=== PATIENT | female | born 1970 | race Caucasian/White ===

== ENCOUNTER 2022-03-21 21:42 | Inpatient (IN) | payer MEDICARE, SELFPAY ==
--- NOTE | 2022-03-22 | ECG_ITS ---
Test Reason : cp Blood Pressure : / mmHG Vent. Rate : 072 BPM Atrial Rate : 072 BPM P-R Int : 128 ms QRS Dur : 080 ms QT Int : 396 ms P-R-T Axes : 032 029 064 degrees QTc Int : 433 ms Normal sinus rhythm Normal ECG No previous ECGs available Referred By: Khloe Bertrand Electronically Signed By:TERRANCE LAN MD
[2022-03-22 00:04] VITALS: BMI 40.8
--- NOTE | 2022-03-22 00:21 | PC.ADMIT ---
Pt is a 51yoF admitted from [facility] for psychosis and delusions. Pt was brought to ED by EMS after going door to door with erratic behavior, yelling that she was . She was found with blood running down her legs and a turkey baster filled with blood nearby; appeared to be menstruating but denied inserting any objects inside her body. Pt stated she was , either in labor or miscarrying; this was verified through blood tests to be false. Pt's mood is labile, thought process delusional and tangential. Upon arrival to she refused all admission paperwork, assessment, vitals, and questions, stating I just want to go to bed . Pt appears disheveled/unkempt, has poor dentition. While on the stretcher w/EMS, pt was holding a glass marijuana pipe in her hand which she handed to RN stating this is bad weed, I wanted to show someone that. You can throw it out . Pt has a hx of Bipolar w/psychotic features and PTSD and has been off her medication for an unknown amount of time. She has lived in [facility] residential housing for 5 years. It is unclear if she has been seeing a therapist or medication prescriber, and the details of her home supports are also unclear. Pt has poor insight into why she is here, and refused to comment on SI/HI/AH/VH. Pt refused flu vaccine.
[2022-03-22 08:15] VITALS: BP 191/97; PULSE 75; RESP 20; TEMP 36.7; O2SAT 99
[2022-03-22] MEDS: valACYclovir HCL 500 MG TABLET PO ×2 (08:35→22:04)
[2022-03-22] MEDS: Loratadine 10 MG TABLET PO (08:35)
[2022-03-22] MEDS: lisinopriL 5 MG TABLET PO (08:35)
[2022-03-22] MEDS: Docusate Sodium 100 MG CAPSULE PO (08:35)
[2022-03-22 09:14] LABS: Estimated Average Glucose 111 mg/dL; Hemoglobin A1c % 5.5 %
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
[2022-03-22 10:29] LABS: Cholesterol 139 mg/dL; HDL Cholesterol 29 mg/dL; LDL Cholesterol Calculated 85 mg/dl; Triglycerides 128 mg/dL
[2022-03-22 10:41] LABS: Reflex LDLD? No
--- NOTE | 2022-03-22 12:20 | PC.NURSE ---
Patient BP high 191/97 HR 77 left arm, 180/99 right arm. Denies symptoms, no CP or pressure, no headache, no c/o feeling lightheaded, no blurry or double vision. Educated regarding medication for blood pressure, patient refused Cardura. Blood pressure retaken 186/100 HR 77. Adamantly does not want medication. States it is high because I was exercising , walking up and down in the suazo, maybe you should have waited 10 minutes, and taken it while I was laying down . Where do I know you from, when I see you I cough so I know I know you from somewhere . Khloe Bertrand made aware of elevated blood pressure. Approached patient again, she requested a retake bedcause it is lower now . BP 173/90 HR 80. Agrees to one time dose of Amlodipine. Re educated on medication and high BP.
[2022-03-22] MEDS: amLODIPine Besylate 5 MG TABLET PO (13:23)
[2022-03-22] MEDS: Gabapentin 300 MG CAPSULE PO (13:23)
[2022-03-22 14:15] VITALS: BP 173/90; PULSE 80
[2022-03-22 14:23] VITALS: BP 198/113; PULSE 88
[2022-03-22 14:25] VITALS: BP 184/111; PULSE 85
[2022-03-22 22:01] VITALS: BP 140/81; PULSE 82; TEMP 36.6; O2SAT 99
[2022-03-22] MEDS: Acetaminophen 325 MG TABLET 650 MG PO (22:04)
[2022-03-22] MEDS: Cyclobenzaprine HCl 5 MG TABLET PO (22:04)
[2022-03-22] MEDS: Fluticasone Propionate 250 MCG BLST.W.DEV 1 PUFF INHALE (22:14)
[2022-03-23] MEDS: Acetaminophen 325 MG TABLET 650 MG PO ×2 (04:55→14:38)
[2022-03-23 06:00] VITALS: BP 161/101; PULSE 75; RESP 16; TEMP 36.4; O2SAT 99
[2022-03-23] MEDS: Cyclobenzaprine HCl 5 MG TABLET PO (06:28)
[2022-03-23 07:00] VITALS: BMI 37.9
[2022-03-23] MEDS: Fluticasone Propionate 250 MCG BLST.W.DEV 1 PUFF INHALE (08:32)
[2022-03-23] MEDS: Doxazosin Mesylate 2 MG TABLET PO (08:34)
[2022-03-23] MEDS: lisinopriL 5 MG TABLET PO (08:34)
[2022-03-23] MEDS: valACYclovir HCL 500 MG TABLET PO (08:35)
[2022-03-23] MEDS: Loratadine 10 MG TABLET PO (08:36)
--- NOTE | 2022-03-23 14:30 | P.PNPSI_ITS ---
Subjective Subjective Date of Service: 03/23/22 Reason For Visit: Bipolar 1 Disorder, PTSD Subjective Notes: Conditional Voluntary Interim History: Pt reports feeling fine. She reports doing art on the unit helps her with anxiety. Pt denies SI/HI. She continues to report hearing voices of spirits. Denies CAH. Pt continues to report that she had a miscarriage and that she is still and therefore can't take psychotropic medications. Pt declined taking Olanzapine, stating that she does not need any psych medications. She has agreed to take medications for HTN. Pt reports she is worried that she is being evicted from and has hearing tomorrow. Collateral information from friend Omega- reports pt stayed with him last week, delusions about being , labile, hyperverbal, not letting him sleep, difficult to redirect. Omega states he got a no trespassing order. Medication Compliance: Yes Side effects from medications: No Review of Systems Review of Systems Yes all other systems are reviewed and are negative Constitutional: Reports no additional constitutional complaints Eyes: Reports no additional eye complaints Cardiovascular: Denies chest pain, Denies chest pain at rest, Denies syncope, Denies lightheadedness and Denies dyspnea Respiratory: Denies dyspnea Gastrointestinal: Denies abdominal pain, Denies constipation, Reports GI cramping, Denies dyspepsia, Reports diarrhea and Denies vomiting Musculoskeletal: Reports no additional musculoskeletal complaints Denies syncope Mental Status Exam Mental Status Exam Narrative: Appearance:MO, disheveled, in NAD Behavior:somewhat guarded at times but also overly familiar Psychomotor: some agitation Speech: mostly clear, hyperverbal, pressured at times, spontaneous TP: tangential TC: feeling anxious, no SI/HI, wanting to be discharge soon Mood: good Affect: expansive, labile SI: denies HI: denies AH/VH: denies Delusions:some suspiciousness about peers at , currently does not think she is but thinks she may have had miscarriage yesterday despite no medical evidence of this. Insight/judgment: poor x 3. Memory/cog: alert, oriented x 3. Diagnostics Vital Signs (24Hr): Vital Signs - 24 hr 03/22/22 22:01 03/23/22 06:00 Temperature 97.8 F 97.6 F Pulse Rate 82 75 Respiratory Rate 16 Blood Pressure 140/81 H 161/101 H Pulse Oximetry 99 99 Oxygen Delivery Method Room Air Room Air BMI result Body Mass Index 37.9 Labs Labs: Laboratory Results - last 48 hr 03/22/22 03/22/22 08:42 08:42 Estimat Average Glucose 111 Hemoglobin A1c % 5.5 Triglycerides 128 Cholesterol 139 LDL Cholesterol, Calc 85 HDL Cholesterol 29 Medications Medications Current Medications Acetaminophen (Acetaminophen 325 Mg Tablet) 650 mg PO Q6H PRN PRN Reason: Headache/Pain Mild Scale (1-3) Last Admin: 03/23/22 04:55 Dose: 650 mg Al Hydroxide/Mg Hydroxide (Magnesium Hydrox/Alum Hydrox 30 Ml Oral.Susp) 30 ml PO Q6H PRN PRN Reason: Heartburn/Nausea Clonidine HCl (Clonidine Hcl 0.1 Mg Tablet) 0.1 mg PO Q2H PRN; Protocol PRN Reason: SBP>160, DBP>100 Cyclobenzaprine HCl (Cyclobenzaprine Hcl 5 Mg Tablet) 5 mg PO TID PRN PRN Reason: Back Pain Last Admin: 03/23/22 06:28 Dose: 5 mg Diphenhydramine HCl (Diphenhydramine Hcl 25 Mg Capsule) 25 mg PO TID PRN PRN Reason: Allergic Reaction Docusate Sodium (Docusate Sodium 100 Mg Capsule) 100 mg PO BID [facility] Last Admin: 03/23/22 08:37 Dose: Not Given Doxazosin Mesylate (Doxazosin Mesylate 2 Mg Tablet) 2 mg PO DAILY [facility]; Protocol Last Admin: 03/23/22 08:34 Dose: 2 mg Fluticasone Propionate (Fluticasone Propionate 250 Mcg Blst.W.Dev) 1 puff INHALE RBID [facility] Last Admin: 03/23/22 08:32 Dose: 1 puff Gabapentin (Gabapentin 300 Mg Capsule) 300 mg PO TID [facility] Last Admin: 03/23/22 08:36 Dose: Not Given Hydroxyzine HCl (Hydroxyzine Hcl 25 Mg Tablet) 25 mg PO Q6H PRN PRN Reason: Anxiety Lisinopril (Lisinopril 10 Mg Tablet) 10 mg PO DAILY [facility]; Protocol Loratadine (Loratadine 10 Mg Tablet) 10 mg PO DAILY [facility] Last Admin: 03/23/22 08:36 Dose: 10 mg Magnesium Hydroxide (Milk Of Magnesia 30 Ml Oral.Susp) 30 ml PO DAILY PRN PRN Reason: Constipation Nicotine Polacrilex (Nicotine Polacrilex 2 Mg Gum) 4 mg BUCCAL Q2H PRN PRN Reason: Nicotine Cravings Olanzapine (Olanzapine 5 Mg Tablet) 5 mg PO TID PRN PRN Reason: agitation Olanzapine (Olanzapine 7.5 Mg Tablet) 15 mg PO BEDTIME [facility] Last Admin: 03/22/22 22:17 Dose: Not Given Trazodone HCl (Trazodone Hcl 50 Mg Tablet) 50 mg PO BEDTIME PRN PRN Reason: Insomnia Valacyclovir HCl (Valacyclovir Hcl 500 Mg Tablet) 500 mg PO BID [facility] Last Admin: 03/23/22 08:35 Dose: 500 mg Allergies Allergies Allergy/AdvReac Type Severity Reaction Status Date / Time codeine Allergy Unknown Verified 03/21/22 22:55 latex Allergy Rash Verified 03/21/22 22:55 Assessment & Plan Assessment & Plan (1) Schizoaffective disorder, bipolar type: Status: Acute Code(s): F25.0 - Schizoaffective disorder, bipolar type Plan Ms. Bedoya is a 51 year-old woman with hx of schizoaffective disorder versus bipolar. Pt was brought on sect 12 to [facility] after found going from door to door, with turkey baster apparently filled with blood telling people she was and in active labor. In the ED, utox negative. Hcg is less than 1 mlU/ml, not indicative of nor evidence of miscarriage. CBC wnl, CMP mostly wnl. PLAN 1. Admit to M3, CV, 15 minutes checks for safety 2. Obtain collateral information 3. Offer olanzapine can refused as it is not court mandated. 4. Aftercare planning. 03/23- continue current medications- monitor BP. I spent minutes with the patient and/or on the patient floor today, greater than?50% of which was spent counseling/coordinating care. Reason for contiued inpatient stay Substantial Risk for: inability to function
--- NOTE | 2022-03-23 17:17 | P.CNHOSGPS_ITS ---
History of Present Illness Data of Consult Service Date: 03/23/22 Requesting physician: Ginette Alvarez Primary Care Provider: Unknown Physician HPI Reason for consult: new admission, possible UTI This is a 51 year old female with a history of bipolar disorder versus schizoaffective disorder who was brought in on [address] after she was going door to door telling people she was in actively giving . hospitalists were asked to see her in consultation for routine medical consult as she was transferred from [facility]. She is unable to provide clear medical/medication history. When asked about hypertension she said she was mid diagnosed in the past and she gets cold because she's homeless. She does state that she was told that she has bad white cells in her body and she needs to be on antibiotics. She was recently treated with antibiotics possibly for UTI. She denies dysuria, but reports urinary incontinence which she states is not her baseline. She denies abdominal pain. She does report diarrhea but this seems to be dependent on food in secondary to history of cholecystectomy. social history - she reports remote tobacco use; social/occasional etoh use; reports using marijuana edibles from dispensary, but denies other drug use Review of Systems Review of Systems: Yes all other systems are reviewed and are negative Cardiovascular: Cardiovascular: Denies chest pain Gastrointestinal: Gastrointestinal: Denies abdominal pain, Reports diarrhea and Denies vomiting Genitourinary: Genitourinary: Denies dysuria and Reports urinary incontinence [facility] Medical History (Updated 03/23/22 @ 17:28 by YULI Leon) Arthritis Asthma Bipolar disorder Genital HSV Hypertension Kidney stone Menorrhagia Microalbuminuria Obesity PTSD (post-traumatic stress disorder) Sciatica Seizure disorder Family History Other Heart disease Surgical History S/P cholecystectomy Social History Household Members: Other Household Members Other:: Roommates Housing: Other Housing Other:: Residential housing Do you presently have visiting nurse or other home services: Yes Patient Tobacco Use Status: Current everyday Tobacco user Tobacco use type: Cigarette Smoked in Last 30 Days: Yes e-Cigarette/Vaping Use: Never Used Patient Interested in Nicotine Replacement: Yes Patient Given Instructions on How to Stop Smoking: No Second Hand Smoke Exposure: Yes Use of substances other than those prescribed or required for medical reasons: No Substance Use Type: Crack/Cocaine, Heroin and Marijuana Last Used Substance Other:: remote hx substance use. Pt denies recent use Currently Displaying Signs/Symptoms of Drug Intoxication Withdrawal: No Any prior treatment program specific to substance use: Yes Have you been hit, kicked, punched, or otherwise hurt by someone within the past year? If so, by whom?: No Do you feel safe in your current relationship?: No Current Relationship Is there a partner from a previous relationship who is making you feel unsafe now?: No Are you made to feel afraid or neglected: No Advance Directives: No Advance Directives Information Provided: No Do you have thoughts of harming others: None Do you have a plan to hurt others: No Plan Recently lost weight without trying: No How much weight loss: Not applicable Eating poorly because of decreased appetite: No Nutrition screen score: 0 Nutrition Risks: No Nutritional Risk Patient : No : No Poor oral hygiene: Yes service: No Sexual orientation: Don't Know Meds Allergies Allergy/AdvReac Type Severity Reaction Status Date / Time codeine Allergy Unknown Verified 03/21/22 22:55 latex Allergy Rash Verified 03/21/22 22:55 Active Medications: Current Medications Acetaminophen (Acetaminophen 325 Mg Tablet) 650 mg PO Q6H PRN PRN Reason: Headache/Pain Mild Scale (1-3) Last Admin: 03/23/22 14:38 Dose: 650 mg Al Hydroxide/Mg Hydroxide (Magnesium Hydrox/Alum Hydrox 30 Ml Oral.Susp) 30 ml PO Q6H PRN PRN Reason: Heartburn/Nausea Amlodipine Besylate (Amlodipine Besylate 5 Mg Tablet) 5 mg PO BEDTIME [facility]AS[facility]; Protocol Clonidine HCl (Clonidine Hcl 0.1 Mg Tablet) 0.1 mg PO Q2H PRN; Protocol PRN Reason: SBP>160, DBP>100 Cyclobenzaprine HCl (Cyclobenzaprine Hcl 5 Mg Tablet) 5 mg PO TID PRN PRN Reason: Back Pain Last Admin: 03/23/22 06:28 Dose: 5 mg Diphenhydramine HCl (Diphenhydramine Hcl 25 Mg Capsule) 25 mg PO TID PRN PRN Reason: Allergic Reaction Docusate Sodium (Docusate Sodium 100 Mg Capsule) 100 mg PO BID [facility] Last Admin: 03/23/22 08:37 Dose: Not Given Doxazosin Mesylate (Doxazosin Mesylate 2 Mg Tablet) 2 mg PO DAILY [facility]; Protocol Last Admin: 03/23/22 08:34 Dose: 2 mg Fluticasone Propionate (Fluticasone Propionate 250 Mcg Blst.W.Dev) 1 puff INHALE RBID [facility] Last Admin: 03/23/22 08:32 Dose: 1 puff Gabapentin (Gabapentin 300 Mg Capsule) 300 mg PO TID [facility] Last Admin: 03/23/22 16:03 Dose: Not Given Hydroxyzine HCl (Hydroxyzine Hcl 25 Mg Tablet) 25 mg PO Q6H PRN PRN Reason: Anxiety Lisinopril (Lisinopril 10 Mg Tablet) 10 mg PO DAILY [facility]; Protocol Loratadine (Loratadine 10 Mg Tablet) 10 mg PO DAILY [facility] Last Admin: 03/23/22 08:36 Dose: 10 mg Magnesium Hydroxide (Milk Of Magnesia 30 Ml Oral.Susp) 30 ml PO DAILY PRN PRN Reason: Constipation Nicotine Polacrilex (Nicotine Polacrilex 2 Mg Gum) 4 mg BUCCAL Q2H PRN PRN Reason: Nicotine Cravings Olanzapine (Olanzapine 5 Mg Tablet) 5 mg PO TID PRN PRN Reason: agitation Olanzapine (Olanzapine 7.5 Mg Tablet) 15 mg PO BEDTIME [facility] Last Admin: 03/22/22 22:17 Dose: Not Given Trazodone HCl (Trazodone Hcl 50 Mg Tablet) 50 mg PO BEDTIME PRN PRN Reason: Insomnia Valacyclovir HCl (Valacyclovir Hcl 500 Mg Tablet) 500 mg PO BID [facility] Last Admin: 03/23/22 08:35 Dose: 500 mg Home Medications Medication Instructions Recorded Confirmed Last Taken Type cyclobenzaprine 5 mg tablet 5 mg PO TID PRN Back Pain 03/21/22 03/21/22 Unknown History diphenhydramine HCl 25 mg tablet 25 mg PO TID PRN Allergic Reaction 03/21/22 03/21/22 Unknown History (Banophen) docusate sodium 100 mg capsule 100 mg PO BID 03/21/22 03/21/22 Unknown History doxazosin 2 mg tablet 2 mg PO DAILY 03/21/22 03/21/22 Unknown History fluticasone propionate 220 2 puff inhalation BID 03/21/22 03/21/22 Unknown History mcg/actuation HFA aerosol inhaler (Flovent HFA) gabapentin 300 mg capsule 300 mg PO QID 03/21/22 03/21/22 Unknown History lisinopril 5 mg tablet 5 mg PO DAILY 03/21/22 03/21/22 Unknown History loratadine 10 mg tablet 10 mg PO DAILY 03/21/22 03/21/22 Unknown History olanzapine 5 mg tablet 5 mg PO BEDTIME 03/21/22 03/21/22 Unknown History valacyclovir 500 mg tablet 500 mg PO BID 03/21/22 03/21/22 Unknown History (Valtrex) Assessment and Plan (1) Hypertension: Status: Acute Plan This is a 51 year old female with history of schizoaffective disorder versus bipolar disorder admitted to Adult inpatient psych floor uncontrolled HTN lisinopril and norvasc have been added blood pressure should improve with these additions urinary incontinence she states that this is not her baseline although it is listed in her medical history patient states she was told that she has bad white blood cells in her body she feels she may have UTI will obtain UA intermittent diarrhea seems to be food related recommend to avoid fried/fatty foods given history of cholecystectomy Obesity BMI 37.9 No other acute medical issues at this time. Thank you for allowing us to participate in the care of this patient. Physical Exam Vital Signs: Last Vital Signs Temp 97.6 F 03/23/22 06:00 Pulse 75 03/23/22 06:00 Resp 16 03/23/22 06:00 BP 161/101 H 03/23/22 06:00 Pulse Ox 99 03/23/22 06:00 O2 Del Method 03/23/22 06:00 BMI result Body Mass Index 37.9 Const General: comfortable, no acute distress, alert, awake and Physically active Nutritional Appearance: obese Resp Effort & Inspection: normal respiratory effort and able to speak in complete sentences Auscultation: clear to auscultation bilaterally Cardio Rate: regular rate Heart sounds: S1 normal heart sound present and S2 normal heart sound present GI Inspection: Yes obesity Neuro Other: no focal deficits appreciated Cranial nerves: Yes CN's II-XII intact bilaterally Extrem General: Yes no pedal edema
[2022-03-23 18:52] LABS: Appearance Urine Clear; Color Urine Yellow; Glucose Urine UA Negative (Negative); Leukocyte Esterase Urine Small (1+) (Negative); Nitrite Urine Negative (Negative); PH 6.5 (5.0-9.0); Specific Gravity - Urine 1.015 (1.005-1.025); UMIC TRIGGER UACC YES; Urine Blood Small (1+) (Negative); Urine Ketones Negative (Negative); Urine Protein Negative (Neg-Trace)
[2022-03-23 19:06] LABS: Bacteria Urine None Seen (None Seen); Hyaline Casts Urine 0-2 /LPF (0-2); UACC Culture Trigger YES
[2022-03-24] MEDS: Acetaminophen 325 MG TABLET 650 MG PO ×3 (02:34→15:07)
[2022-03-24] MEDS: Cyclobenzaprine HCl 5 MG TABLET PO (02:47)
[2022-03-24 03:09] VITALS: BP 151/96; PULSE 78; O2SAT 97
[2022-03-24 08:33] VITALS: BP 157/93; PULSE 93; RESP 18; TEMP 36.5; O2SAT 98
[2022-03-24] MEDS: valACYclovir HCL 500 MG TABLET PO ×2 (08:37→21:24)
[2022-03-24] MEDS: Fluticasone Propionate 250 MCG BLST.W.DEV 1 PUFF INHALE ×2 (08:37→21:25)
[2022-03-24] MEDS: Loratadine 10 MG TABLET PO (08:38)
[2022-03-24] MEDS: lisinopriL 10 MG TABLET PO (08:38)
[2022-03-24] MEDS: Doxazosin Mesylate 2 MG TABLET PO (08:38)
--- NOTE | 2022-03-24 13:29 | HO.PSYCHPN ---
Subjective Subjective Date of Service: 03/24/22 Reason For Visit: Bipolar 1 Disorder, PTSD Subjective Notes: Conditional Voluntary Interim History: Pt declines psychotropic medications stating she is fine and does not need them. Pt reports that she felt offended by staff and therefore decided to sign 3 day. She denies SI/HI. She reports she knows she had miscarriage. She reports she can't take medications that can affect her despite telling her she is not . She asks to be discharged soon. Medication Compliance: No Side effects from medications: No Review of Systems Review of Systems Yes all other systems are reviewed and are negative Constitutional: Reports no additional constitutional complaints Eyes: Reports no additional eye complaints Cardiovascular: Denies chest pain, Denies chest pain at rest, Denies syncope, Denies lightheadedness and Denies dyspnea Respiratory: Denies dyspnea Gastrointestinal: Denies abdominal pain, Denies constipation, Reports GI cramping, Denies dyspepsia, Reports diarrhea and Denies vomiting Musculoskeletal: Reports no additional musculoskeletal complaints Denies syncope Mental Status Exam Mental Status Exam Narrative: Appearance:MO, disheveled, in NAD Behavior:somewhat guarded at times but also overly familiar Psychomotor: some agitation Speech: mostly clear, hyperverbal, pressured at times, spontaneous TP: tangential TC: feeling anxious, no SI/HI, wanting to be discharge soon Mood: good Affect: expansive, labile SI: denies HI: denies AH/VH: denies Delusions:some suspiciousness about peers at , currently does not think she is but thinks she may have had miscarriage yesterday despite no medical evidence of this. Insight/judgment: poor x 3. Memory/cog: alert, oriented x 3. Diagnostics Vital Signs (24Hr): Vital Signs - 24 hr 03/24/22 03:09 03/24/22 08:33 03/24/22 21:22 Temperature 97.7 F 97.1 F Pulse Rate 78 93 85 Respiratory Rate 18 16 Blood Pressure 151/96 H 157/93 H 135/82 Pulse Oximetry 97 98 99 Oxygen Delivery Method Room Air Room Air Room Air BMI result Body Mass Index 37.9 Labs Labs: Laboratory Results - last 48 hr 03/23/22 18:46 Urine Color Yellow Urine Appearance Clear Urine pH 6.5 Ur Specific [place] 1.015 Urine Protein Negative Urine Glucose (UA) Negative Urine Ketones Negative Urine Blood Small (1+) H Urine Nitrite Negative Ur Leukocyte Esterase Small (1+) H Urine RBC 3-5 H Urine WBC 11-20 H Ur Squamous Epith Cells 3-5 Urine Bacteria None Seen Hyaline Casts 0-2 Medications Medications Current Medications Acetaminophen (Acetaminophen 325 Mg Tablet) 650 mg PO Q6H PRN PRN Reason: Headache/Pain Mild Scale (1-3) Last Admin: 03/24/22 15:07 Dose: 650 mg Al Hydroxide/Mg Hydroxide (Magnesium Hydrox/Alum Hydrox 30 Ml Oral.Susp) 30 ml PO Q6H PRN PRN Reason: Heartburn/Nausea Amlodipine Besylate (Amlodipine Besylate 5 Mg Tablet) 5 mg PO BEDTIME [facility]; Protocol Last Admin: 03/23/22 23:46 Dose: Not Given Cyclobenzaprine HCl (Cyclobenzaprine Hcl 5 Mg Tablet) 5 mg PO TID PRN PRN Reason: Back Pain Last Admin: 03/24/22 02:47 Dose: 5 mg Diphenhydramine HCl (Diphenhydramine Hcl 25 Mg Capsule) 25 mg PO TID PRN PRN Reason: Allergic Reaction Docusate Sodium (Docusate Sodium 100 Mg Capsule) 100 mg PO BID [facility] Last Admin: 03/24/22 08:23 Dose: Not Given Doxazosin Mesylate (Doxazosin Mesylate 2 Mg Tablet) 2 mg PO DAILY [facility]; Protocol Last Admin: 03/24/22 08:38 Dose: 2 mg Fluticasone Propionate (Fluticasone Propionate 250 Mcg Blst.W.Dev) 1 puff INHALE RBID [facility] Last Admin: 03/24/22 21:25 Dose: 1 puff Gabapentin (Gabapentin 300 Mg Capsule) 300 mg PO TID [facility] Last Admin: 03/24/22 15:08 Dose: Not Given Hydroxyzine HCl (Hydroxyzine Hcl 25 Mg Tablet) 25 mg PO Q6H PRN PRN Reason: Anxiety Lisinopril (Lisinopril 10 Mg Tablet) 10 mg PO DAILY [facility]; Protocol Last Admin: 03/24/22 08:38 Dose: 10 mg Loratadine (Loratadine 10 Mg Tablet) 10 mg PO DAILY [facility] Last Admin: 03/24/22 08:38 Dose: 10 mg Magnesium Hydroxide (Milk Of Magnesia 30 Ml Oral.Susp) 30 ml PO DAILY PRN PRN Reason: Constipation Nicotine Polacrilex (Nicotine Polacrilex 2 Mg Gum) 4 mg BUCCAL Q2H PRN PRN Reason: Nicotine Cravings Olanzapine (Olanzapine 5 Mg Tablet) 5 mg PO TID PRN PRN Reason: agitation Olanzapine (Olanzapine 7.5 Mg Tablet) 15 mg PO BEDTIME [facility] Last Admin: 03/23/22 23:46 Dose: Not Given Trazodone HCl (Trazodone Hcl 50 Mg Tablet) 50 mg PO BEDTIME PRN PRN Reason: Insomnia Valacyclovir HCl (Valacyclovir Hcl 500 Mg Tablet) 500 mg PO BID [facility] Last Admin: 03/24/22 21:24 Dose: 500 mg Allergies Allergies Allergy/AdvReac Type Severity Reaction Status Date / Time codeine Allergy Unknown Verified 03/21/22 22:55 latex Allergy Rash Verified 03/21/22 22:55 Assessment & Plan Assessment & Plan (1) Schizoaffective disorder, bipolar type: Status: Acute Code(s): F25.0 - Schizoaffective disorder, bipolar type Plan Ms. Bedoya is a 51 year-old woman with hx of schizoaffective disorder versus bipolar. Pt was brought on sect 12 to [facility] after found going from door to door, with turkey baster apparently filled with blood telling people she was and in active labor. In the ED, utox negative. Hcg is less than 1 mlU/ml, not indicative of nor evidence of miscarriage. CBC wnl, CMP mostly wnl. PLAN 1. Admit to M3, CV, 15 minutes checks for safety 2. Obtain collateral information 3. Offer olanzapine can refused as it is not court mandated. 4. Aftercare planning. 03/23- continue current medications- monitor BP. 03/24 continue tx. I spent minutes with the patient and/or on the patient floor today, greater than?50% of which was spent counseling/coordinating care. Reason for contiued inpatient stay Substantial Risk for: inability to function
[2022-03-24 21:22] VITALS: BP 135/82; PULSE 85; RESP 16; TEMP 36.2; O2SAT 99
[2022-03-25] MEDS: Acetaminophen 325 MG TABLET 650 MG PO ×2 (07:16→22:36)
[2022-03-25 08:40] VITALS: BP 162/100; PULSE 69; RESP 18; TEMP 36.3; O2SAT 100
[2022-03-25] MEDS: valACYclovir HCL 500 MG TABLET PO ×2 (08:53→22:21)
[2022-03-25] MEDS: Loratadine 10 MG TABLET PO (08:53)
[2022-03-25] MEDS: Doxazosin Mesylate 2 MG TABLET PO (08:53)
[2022-03-25] MEDS: Fluticasone Propionate 250 MCG BLST.W.DEV 1 PUFF INHALE (08:54)
--- NOTE | 2022-03-25 10:59 | PC.NURSE ---
Patient requesting lisinopril be given at night. Provider notified, and notified of current vital signs.
[2022-03-25 11:22] VITALS: BP 142/72; PULSE 96; RESP 18; O2SAT 98
[2022-03-25] MEDS: Cyclobenzaprine HCl 5 MG TABLET PO ×2 (11:55→17:47)
--- NOTE | 2022-03-25 14:23 | P.PNPSI_ITS ---
Subjective Subjective Date of Service: 03/25/22 Reason For Visit: Bipolar 1 Disorder, PTSD Subjective Notes: [place] Warning and 3 Day Medical Problems Affecting Mental Status: No Interim History: Met with patient. Discussed with Nursing. Chart reviewed. Overall patient does report is pressured and tangential. Pleasant however. 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 Reports missing being able to see the news and watch this. Reports she would like to follow the news to see if there are dangerous things happening in the states such as [place], [place] and many others because she has children and many of the state. 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 Denies feeling depressed. Denied SI. Denied psychosis. When asked about medications reports she has no psychiatric problems and does not take psychiatric medications. Has been sleeping. Three-day notice in place. Medication Compliance: No Side effects from medications: No Attending Groups: Yes Review of Systems Acute medical concerns: No Review of Systems Review of Systems Unremarkable Mental Status Exam Mental Status Exam Narrative: Pleasant. Appropriately dressed. Hygiene okay. Pressured speech and tangential. Denies feeling depressed. Denied SI or HI. Does appear to have delusional beliefs. Insight and judgment poor Diagnostics Vital Signs (24Hr): Vital Signs - 24 hr 03/24/22 21:22 03/25/22 08:40 03/25/22 11:22 Temperature 97.1 F 97.3 F Pulse Rate 85 69 96 Respiratory Rate 16 18 18 Blood Pressure 135/82 162/100 H 142/72 H Pulse Oximetry 99 100 98 Oxygen Delivery Method Room Air Room Air Room Air BMI result Body Mass Index 37.9 Labs Labs: Laboratory Results - last 48 hr 03/23/22 18:46 Urine Color Yellow Urine Appearance Clear Urine pH 6.5 Ur Specific [place] 1.015 Urine Protein Negative Urine Glucose (UA) Negative Urine Ketones Negative Urine Blood Small (1+) H Urine Nitrite Negative Ur Leukocyte Esterase Small (1+) H Urine RBC 3-5 H Urine WBC 11-20 H Ur Squamous Epith Cells 3-5 Urine Bacteria None Seen Hyaline Casts 0-2 Medications Medications Current Medications Acetaminophen (Acetaminophen 325 Mg Tablet) 650 mg PO Q6H PRN PRN Reason: Headache/Pain Mild Scale (1-3) Last Admin: 03/25/22 07:16 Dose: 650 mg Al Hydroxide/Mg Hydroxide (Magnesium Hydrox/Alum Hydrox 30 Ml Oral.Susp) 30 ml PO Q6H PRN PRN Reason: Heartburn/Nausea Amlodipine Besylate (Amlodipine Besylate 5 Mg Tablet) 5 mg PO BEDTIME [facility]; Protocol Last Admin: 03/24/22 21:26 Dose: Not Given Cyclobenzaprine HCl (Cyclobenzaprine Hcl 5 Mg Tablet) 5 mg PO TID PRN PRN Reason: Back Pain Last Admin: 03/25/22 11:55 Dose: 5 mg Diphenhydramine HCl (Diphenhydramine Hcl 25 Mg Capsule) 25 mg PO TID PRN PRN Reason: Allergic Reaction Docusate Sodium (Docusate Sodium 100 Mg Capsule) 100 mg PO BID [facility] Last Admin: 03/25/22 08:56 Dose: Not Given Doxazosin Mesylate (Doxazosin Mesylate 2 Mg Tablet) 2 mg PO DAILY [facility]; Protocol Last Admin: 03/25/22 08:53 Dose: 2 mg Fluticasone Propionate (Fluticasone Propionate 250 Mcg Blst.W.Dev) 1 puff INHALE RBID [facility] Last Admin: 03/25/22 08:54 Dose: 1 puff Gabapentin (Gabapentin 300 Mg Capsule) 300 mg PO TID [facility] Last Admin: 03/25/22 08:55 Dose: Not Given Hydroxyzine HCl (Hydroxyzine Hcl 25 Mg Tablet) 25 mg PO Q6H PRN PRN Reason: Anxiety Lisinopril (Lisinopril 10 Mg Tablet) 10 mg PO DAILY [facility]; Protocol Last Admin: 03/24/22 08:38 Dose: 10 mg Loratadine (Loratadine 10 Mg Tablet) 10 mg PO DAILY [facility] Last Admin: 03/25/22 08:53 Dose: 10 mg Magnesium Hydroxide (Milk Of Magnesia 30 Ml Oral.Susp) 30 ml PO DAILY PRN PRN Reason: Constipation Nicotine Polacrilex (Nicotine Polacrilex 2 Mg Gum) 4 mg BUCCAL Q2H PRN PRN Reason: Nicotine Cravings Olanzapine (Olanzapine 5 Mg Tablet) 5 mg PO TID PRN PRN Reason: agitation Olanzapine (Olanzapine 7.5 Mg Tablet) 15 mg PO BEDTIME [facility] Last Admin: 03/24/22 21:26 Dose: Not Given Trazodone HCl (Trazodone Hcl 50 Mg Tablet) 50 mg PO BEDTIME PRN PRN Reason: Insomnia Valacyclovir HCl (Valacyclovir Hcl 500 Mg Tablet) 500 mg PO BID [facility] Last Admin: 03/25/22 08:53 Dose: 500 mg Allergies Allergies Allergy/AdvReac Type Severity Reaction Status Date / Time codeine Allergy Unknown Verified 03/21/22 22:55 latex Allergy Rash Verified 03/21/22 22:55 Assessment & Plan Assessment & Plan (1) Schizoaffective disorder, bipolar type: Status: Acute Code(s): F25.0 - Schizoaffective disorder, bipolar type Plan Ms. Bedoya is a 51 year-old woman with hx of schizoaffective disorder versus bipolar. Pt was brought on sect 12 to [facility] after found going from door to door, with turkey baster apparently filled with blood telling people she was and in active labor. In the ED, utox negative. Hcg is less than 1 mlU/ml, not indicative of nor evidence of miscarriage. CBC wnl, CMP mostly wnl. PLAN 1. Admit to M3, CV, 15 minutes checks for safety 2. Obtain collateral information 3. Offer olanzapine can refused as it is not court mandated. 4. Aftercare planning. 03/23- continue current medications- monitor BP. 03/24 continue tx. 03/25/2022: No changes to current plan i.e. continue to encourage medication adherence. Three-day notice in place I spent minutes with the patient and/or on the patient floor today, greater than?50% of which was spent counseling/coordinating care. Reason for contiued inpatient stay Substantial Risk for: inability to function and rapid decompensation
[2022-03-25] MEDS: Ibuprofen 400 MG TABLET PO (17:46)
[2022-03-25 22:18] VITALS: BP 144/71; PULSE 80; RESP 18; TEMP 36.2; O2SAT 97
[2022-03-25] MEDS: lisinopriL 10 MG TABLET PO (22:21)
[2022-03-26] MEDS: Ibuprofen 400 MG TABLET PO ×2 (03:18→14:51)
[2022-03-26] MEDS: Cyclobenzaprine HCl 5 MG TABLET PO ×2 (06:46→21:03)
[2022-03-26 08:00] VITALS: BP 141/87; PULSE 83; RESP 20; TEMP 36.7; O2SAT 98
[2022-03-26] MEDS: valACYclovir HCL 500 MG TABLET PO ×2 (08:11→20:59)
[2022-03-26] MEDS: Fluticasone Propionate 250 MCG BLST.W.DEV 1 PUFF INHALE ×2 (08:12→21:06)
--- NOTE | 2022-03-26 08:15 | PC.NURSE ---
Patient declined several medications including Doxazosin, stating that : I have my blood pressure under control, you said it was good this morning. I know my body, I go to the doctor's. Education offered re: hypertension and the importance of maintaining medication regimen, patient continued to decline medications.
[2022-03-26] MEDS: Acetaminophen 325 MG TABLET 650 MG PO (08:24)
--- NOTE | 2022-03-26 14:05 | HO.PSYCHPN ---
Subjective Subjective Date of Service: 03/26/22 Reason For Visit: Bipolar 1 Disorder, PTSD Interim History: Met with patient. Discussed with Nursing. Chart reviewed. Overall patient is pressured and tangential. She is pleasant and enjoys walking on the unit. Reports her main goal is to be discharged and would like to be at a different [facility]. Denies feeling depressed. Denied SI. Denied psychosis. Sleep okay. Limited insight regarding mental health treatment Medication Compliance: Intermittent Side effects from medications: No Attending Groups: Intermittent Review of Systems Acute medical concerns: No Review of Systems Review of Systems Unremarkable Mental Status Exam Mental Status Exam Narrative: Pleasant. Appropriately dressed. Hygiene okay. Pressured speech and tangential. Denies feeling depressed. Denied SI or HI. Does appear to have delusional beliefs. Insight and judgment poor Diagnostics Vital Signs (24Hr): Vital Signs - 24 hr 03/25/22 22:18 03/26/22 08:00 Temperature 97.1 F 98.1 F Pulse Rate 80 83 Respiratory Rate 18 20 Blood Pressure 144/71 H 141/87 H Pulse Oximetry 97 98 Oxygen Delivery Method Room Air Room Air BMI result Body Mass Index 37.9 Medications Medications Current Medications Acetaminophen (Acetaminophen 325 Mg Tablet) 650 mg PO Q6H PRN PRN Reason: Headache/Pain Mild Scale (1-3) Last Admin: 03/26/22 08:24 Dose: 650 mg Al Hydroxide/Mg Hydroxide (Magnesium Hydrox/Alum Hydrox 30 Ml Oral.Susp) 30 ml PO Q6H PRN PRN Reason: Heartburn/Nausea Amlodipine Besylate (Amlodipine Besylate 5 Mg Tablet) 5 mg PO BEDTIME [facility]; Protocol Last Admin: 03/25/22 22:24 Dose: Not Given Cyclobenzaprine HCl (Cyclobenzaprine Hcl 5 Mg Tablet) 5 mg PO TID PRN PRN Reason: Back Pain Last Admin: 03/26/22 06:46 Dose: 5 mg Diphenhydramine HCl (Diphenhydramine Hcl 25 Mg Capsule) 25 mg PO TID PRN PRN Reason: Allergic Reaction Docusate Sodium (Docusate Sodium 100 Mg Capsule) 100 mg PO BID [facility] Last Admin: 03/26/22 08:12 Dose: Not Given Doxazosin Mesylate (Doxazosin Mesylate 2 Mg Tablet) 2 mg PO DAILY [facility]; Protocol Last Admin: 03/26/22 08:12 Dose: Not Given Fluticasone Propionate (Fluticasone Propionate 250 Mcg Blst.W.Dev) 1 puff INHALE RBID [facility] Last Admin: 03/26/22 08:12 Dose: 1 puff Gabapentin (Gabapentin 300 Mg Capsule) 300 mg PO TID [facility] Last Admin: 03/26/22 14:04 Dose: Not Given Hydroxyzine HCl (Hydroxyzine Hcl 25 Mg Tablet) 25 mg PO Q6H PRN PRN Reason: Anxiety Ibuprofen (Ibuprofen 400 Mg Tablet) 400 mg PO Q6H PRN PRN Reason: moderate pain Last Admin: 03/26/22 03:18 Dose: 400 mg Lisinopril (Lisinopril 10 Mg Tablet) 10 mg PO BEDTIME [facility]; Protocol Last Admin: 03/25/22 22:21 Dose: 10 mg Loratadine (Loratadine 10 Mg Tablet) 10 mg PO DAILY [facility] Last Admin: 03/26/22 08:13 Dose: Not Given Magnesium Hydroxide (Milk Of Magnesia 30 Ml Oral.Susp) 30 ml PO DAILY PRN PRN Reason: Constipation Nicotine Polacrilex (Nicotine Polacrilex 2 Mg Gum) 4 mg BUCCAL Q2H PRN PRN Reason: Nicotine Cravings Olanzapine (Olanzapine 5 Mg Tablet) 5 mg PO TID PRN PRN Reason: agitation Olanzapine (Olanzapine 7.5 Mg Tablet) 15 mg PO BEDTIME [facility] Last Admin: 03/25/22 22:25 Dose: Not Given Trazodone HCl (Trazodone Hcl 50 Mg Tablet) 50 mg PO BEDTIME PRN PRN Reason: Insomnia Valacyclovir HCl (Valacyclovir Hcl 500 Mg Tablet) 500 mg PO BID [facility] Last Admin: 03/26/22 08:11 Dose: 500 mg Allergies Allergies Allergy/AdvReac Type Severity Reaction Status Date / Time codeine Allergy Unknown Verified 03/21/22 22:55 latex Allergy Rash Verified 03/21/22 22:55 Assessment & Plan Assessment & Plan (1) Schizoaffective disorder, bipolar type: Status: Acute Code(s): F25.0 - Schizoaffective disorder, bipolar type Plan Ms. Bedoya is a 51 year-old woman with hx of schizoaffective disorder versus bipolar. Pt was brought on sect 12 to [facility] after found going from door to door, with turkey baster apparently filled with blood telling people she was and in active labor. In the ED, utox negative. Hcg is less than 1 mlU/ml, not indicative of nor evidence of miscarriage. CBC wnl, CMP mostly wnl. PLAN 1. Admit to M3, CV, 15 minutes checks for safety 2. Obtain collateral information 3. Offer olanzapine can refused as it is not court mandated. 4. Aftercare planning. 03/23- continue current medications- monitor BP. 03/24 continue tx. 03/26/2022: No changes to current plan i.e. continue to encourage medication adherence. Three-day notice in place I spent minutes with the patient and/or on the patient floor today, greater than?50% of which was spent counseling/coordinating care. Reason for contiued inpatient stay Substantial Risk for: inability to function and rapid decompensation
[2022-03-26 20:22] VITALS: BP 160/98; PULSE 80; RESP 18; TEMP 36.6; O2SAT 98
[2022-03-26] MEDS: lisinopriL 10 MG TABLET PO (20:59)
[2022-03-27 08:15] VITALS: BP 138/76; PULSE 72; RESP 18; TEMP 36.6; O2SAT 99
[2022-03-27] MEDS: valACYclovir HCL 500 MG TABLET PO (08:58)
[2022-03-27] MEDS: Cyclobenzaprine HCl 5 MG TABLET PO (08:58)
[2022-03-27] MEDS: Fluticasone Propionate 250 MCG BLST.W.DEV 1 PUFF INHALE (09:40)
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
== END 2022-03-27 14:07 | disposition home or self-care (01) | DRG 885 ==
PROVIDERS: Physician Assistant Medical; Psychiatry & Neurology Psychiatry; Admitting Provider Psychiatry & Neurology Psychiatry; Visit Provider Social Worker
DX: F25.0 Schizoaffective disorder, bipolar type (principal); G40.909 Epilepsy, unspecified, not intractable, without status epilepticus; F43.10 Post-traumatic stress disorder, unspecified; I10 Essential (primary) hypertension; F17.210 Nicotine dependence, cigarettes, uncomplicated; Z71.6 Tobacco abuse counseling; Z91.040 Latex allergy status; Z88.5 Allergy status to narcotic agent; Z79.51 Long term (current) use of inhaled steroids; Z79.899 Other long term (current) drug therapy
CPT/HCPCS: 36415; 80061; 81001; 83036; 87086; 93005

== ENCOUNTER 2024-02-18 12:42 | Emergency (ER) | payer MEDICARE, SELFPAY ==
--- NOTE | ~2024-02-18 | CT_ITS ---
EXAMINATION: CT ABDOMEN AND PELVIS WITHOUT CONTRAST CLINICAL INFORMATION: Right flank pain with ureteral stone COMPARISON: None available. TECHNIQUE: Multidetector volumetric imaging was performed from the superior aspect of the liver through the pubic symphysis. Sagittal and coronal reformatted images were obtained on the technologist's workstation. This CT examination was performed using dose optimization techniques as appropriate, variously including the following: *Automated exposure control *Adjustment of mA and/or kV according to patient size (this includes techniques or standardized protocols for targeted exams where dose is matched to indication/reason for exam; i.e. extremities or head) *Use of iterative reconstruction technique DLP: 652 mGy-cm FINDINGS: LUNG BASES: The visualized lung bases are unremarkable aside from mild bronchial thickening.. LIVER, GALLBLADDER, AND BILIARY TREE: The liver is enlarged measuring 21.6 cm in greatest dimension with a lobular border consistent with hepatic steatosis. No focal hepatic lesion or biliary ductal dilatation is present. The gallbladder is unremarkable with no evidence of radiopaque gallstones, gallbladder wall thickening, or obvious pericholecystic inflammatory changes. PANCREAS: Unremarkable. SPLEEN: Unremarkable. ADRENAL GLANDS: Bilateral fat and water density adrenal nodules are seen consistent with benign adenomas. The largest measures 2.3 cm on the left (2:23). KIDNEYS AND URETERS: The left kidney appears normal. The right kidney has multiple stones stones in the lower pole the largest of which measures 1.9 x 0.9 x 1.1 cm which measures 1050 Hounsfield units and is 12.5 cm from the posterior axillary line. There are marked perirenal streaky changes are seen on the right adjacent to the lower pole. Did this patient recently undergo lithotripsy? The ureter Is nondilated. BLADDER: Empty but unremarkable GASTROINTESTINAL TRACT: The small and large bowel are unremarkable. The appendix is not seen with certainty but there is no evidence of appendicitis. ABDOMINAL WALL: No significant hernia is appreciated. Tiny left inguinal hernia contains only fat. LYMPH NODES: No retroperitoneal lymphadenopathy. VASCULAR: Unremarkable. PELVIC VISCERA: Adjacent to the anteverted uterus on the right there is an ovoid cyst measuring 5.2 x 2.5 x 2.8 cm OSSEOUS STRUCTURES: Unremarkable. CT/CT abdomen pelvis wo IV con IMPRESSION: 1. Multiple right-sided renal calculi with marked perirenal streaky changes. Did this patient undergo lithotripsy? 2. Incidental note made of enlarged fatty liver, bilateral benign adrenal adenomas and a 5.2 cm right adnexal cyst. Pelvic ultrasound is recommended for further evaluation. Fleischner guidelines were followed. Electronically signed by: Rajeev Mast MD 02/18/2024 10:53 PM [facility]
--- NOTE | ~2024-02-18 | US_ITS ---
EXAMINATION: US PELVIS CLINICAL INFORMATION: Pain. COMPARISON: None available. TECHNIQUE: Ultrasound of the pelvis is performed using both transabdominal and transvaginal transducers along with Doppler. Transvaginal imaging is performed due to inadequate visualization transabdominally. FINDINGS: Uterus: The uterus is anteverted and measures 11.4 x 5.4 x 7.1 cm. Nabothian cysts are noted. Endometrium measures 9 mm. The uterus is smooth in contour and has normal myometrial echogenicity. No visible fibroid. Adnexa: Both ovaries are visualized. There is normal color flow to the adnexa. There is no ovarian torsion. There is no pelvic ascites or fluid collection. Right ovary measures 4.7 x 3 x 3.4 cm. There is an anechoic 3.6 x 2.1 x 2.8 cm structure associated with the right ovary. Left ovary measures 2.4 x 1.6 x 2 cm. US/US pelvic and transvaginal IMPRESSION: 1. Right ovarian cyst. 2. Nabothian cysts. 3. Endometrium measures 9 mm which is within normal limits for a premenopausal woman but could be above normal limits for postmenopausal woman. Correlation needed. Electronically signed by: Papo Hernandez MD 02/19/2024 04:38 AM EST
[2024-02-18 12:58] VITALS: BP 110/84; PULSE 80; O2SAT 97
[2024-02-18 13:09] VITALS: BP 109/84; PULSE 79; RESP 20; TEMP 36.2; O2SAT 98; BMI 34.9
--- NOTE | 2024-02-18 13:13 | ED_ITS ---
HPI - General Adult General Chief complaint: Abdominal Pain Stated complaint: RLQ PAIN PER EMS Time Seen by Provider: 02/18/24 19:48 Source: patient Limitations: no limitations History of Present Illness ED Provider: Kristen Elias PA-C HPI narrative: 53-year-old female with a history of hypertension and schizoaffective disorder, kidney stones presents with the abdominal pain since earlier this morning. Pain focal to right lower quadrant, nonradiating, constant unable to describe the nature of the pain. Associated nausea at times. Denies back pain, dysuria, hematuria, a fever. Denies diarrhea or constipation. No abdominal distention. Related Data Home Medications ?Medication ?Instructions ?Recorded ?Confirmed diphenhydramine HCl 25 mg tablet 25 mg PO TID PRN Allergic Reaction 03/21/22 03/21/22 (Banophen) docusate sodium 100 mg capsule 100 mg PO BID 03/21/22 03/21/22 doxazosin 2 mg tablet 2 mg PO DAILY 03/21/22 03/21/22 valacyclovir 500 mg tablet 500 mg PO BID 03/21/22 03/21/22 (Valtrex) Previous Rx's ?Medication ?Instructions ?Recorded cyclobenzaprine 5 mg tablet 5 mg PO TID PRN Back Pain #45 tabs 03/27/22 fluticasone propionate 113 1 inh inhalation BID #1 ea 03/27/22 mcg/actuation breath activated pwdr inhal,sensor lisinopril 10 mg tablet 10 mg PO BEDTIME #30 tabs 03/27/22 loratadine 10 mg tablet 10 mg PO DAILY #30 tabs 03/27/22 Allergies Allergy/AdvReac Type Severity Reaction Status Date / Time codeine Allergy Unknown Verified 02/18/24 13:10 latex Allergy Rash Verified 02/18/24 13:10 Review of Systems 2 Review of Systems: Yes all other systems are reviewed and are negative Constitutional: Constitutional: Denies fatigue and Denies fever(s) Cardiovascular: Cardiovascular: Denies chest pain and Denies dyspnea Respiratory: Respiratory: Denies dyspnea Gastrointestinal: Gastrointestinal: Reports abdominal pain, Denies constipation, Denies diarrhea, Reports nausea and Denies vomiting Genitourinary: Genitourinary: Denies hematuria and Denies dysuria Endocrine: Endocrine: Denies fatigue PMF Past Medical History Attestation statement: The following information was validated with the patient. Medical History (Updated 02/27/24 @ 00:02 by Jose Martin Geller) Arthritis Sciatica Seizure disorder Asthma Microalbuminuria Menorrhagia Kidney stone Obesity PTSD (post-traumatic stress disorder) Hypertension Genital HSV Bipolar disorder Surgical History S/P cholecystectomy Family History Family History Other Heart disease Social History Social History Household Members: Other Household Members Other:: Roommates Housing: Other Housing Other:: Residential housing Do you presently have visiting nurse or other home services: Yes Patient Tobacco Use Status: Current everyday Tobacco user Tobacco use type: Cigarette Smoked in Last 30 Days: Yes e-Cigarette/Vaping Use: Never Used Second Hand Smoke Exposure: Yes Use of substances other than those prescribed or required for medical reasons: Yes Substance Use Type: Marijuana Substance Use Frequency: Daily Advance Directives: No Advance Directives Information Provided: No Patient : No service: No Sexual orientation: Don't Know Physical Exam ED Vital Signs: Vital Signs - 24 hr 02/18/24 13:09 02/18/24 19:51 02/18/24 23:52 Temperature 97.1 F 99.3 F 98.3 F Pulse Rate 79 93 62 Respiratory Rate 20 18 14 Blood Pressure 109/84 106/58 L 113/64 Pulse Oximetry 98 95 98 Oxygen Delivery Method Room Air Room Air Room Air 02/19/24 03:03 Temperature 98.8 F Pulse Rate 68 Respiratory Rate 16 Blood Pressure 119/68 Pulse Oximetry 98 Oxygen Delivery Method Room Air BMI result Body Mass Index 34.9 Const Other: Alert, well-appearing Orientation/consciousness: patient oriented x3 Resp Other: Nonlabored respiration Cardio Other: Normal peripheral perfusion GI Other: Abdomen is soft, nondistended, nontender no guarding Skin Other: Warm dry no rash Neuro General: patient oriented x3, no focal motor deficits and CN's II-XI intact bilaterally Psych Other: Calm cooperative Course Course Course Narrative: RME: 53 year female presents to ED for right lower quadrant pain since this morning history of kidney stones. Patient states nausea. Positive for right lower quad tenderness on palpation. Labs ordered Medications Administered Discontinued Medications Generic Name Dose Route Start Last Admin Trade Name Freq PRN Reason Stop Dose Admin Sodium Chloride 1,000 mls @ 999 mls/hr 11/04/24 20:00 02/18/24 22:22 Ns IV 02/18/24 21:00 Infused .Q1H1M JASON Infusion Ketorolac Tromethamine 15 mg 02/18/24 19:59 02/18/24 21:21 Ketorolac Tromethamine 15 Mg/Ml Vial IVPUSH 02/18/24 20:00 15 mg ONCE ONE Administration Ondansetron HCl 4 mg 02/18/24 20:03 02/18/24 21:21 Ondansetron Hcl 4 Mg/2 Ml Vial IVPUSH 02/18/24 20:04 4 mg ONCE ONE Administration Medical Decision Making Medical Decision Making MDM Narrative: 53-year-old female with a history of hypertension and schizoaffective disorder, kidney stones presents with the abdominal pain since earlier this morning. Pain focal to right lower quadrant, nonradiating, constant unable to describe the nature of the pain. Associated nausea at times. Denies back pain, dysuria, hematuria, a fever. Denies diarrhea or constipation. No abdominal distention. Problem: Psychiatric illness, kidney stones History: Per patient I have considered the following differential diagnoses: Torsion, renal colic, UTI, appendicitis, bowel obstruction, constipation Plan: Given distribution of discomfort I am considering appendicitis versus potential renal colic. However, the patient is well in appearance, does not appear overtly uncomfortable, she does not present as on does amidst renal colic. We will be obtaining a green labs, urinalysis, CT scan, giving Toradol Zofran and fluid. Thought about torsion, however again her pain is intra- abdominal, not pelvic in origin, and she is well-appearing does not appear extremely uncomfortable, deferring a pelvic ultrasound at this time. Thought about bowel obstruction, however she has no obstructive symptoms. She denies constipation at this time. Labs: No leukocytosis, not anemic, no electrolyte abnormality, urine not infected CT abdomen and pelvis:RDER #: [id number] CT/CT abdomen pelvis wo IV con IMPRESSION: 1. Multiple right-sided renal calculi with marked perirenal streaky changes. Did this patient undergo lithotripsy? 2. Incidental note made of enlarged fatty liver, bilateral benign adrenal adenomas and a 5.2 cm right adnexal cyst. Pelvic ultrasound is recommended for further evaluation. Fleischner guidelines were followed. Electronically signed by: Rajeev Mast MD 02/18/2024 10:53 PM [facility] Discussed findings with the patient, she can have her pelvic ultrasound as an outpatient, there was no evidence of torsion, her pain is controlled, there is no emergent indication. Lab Data 02/18/24 14:07 02/18/24 14:07 Labs: Lab Results 02/18/24 02/18/24 Range/Units 14: 20:17 WBC 11.5 H (4.8-10.8) X10*3/uL RBC 4.20 (4.20-5.50) X10*6/uL Hgb 12.7 (12.0-16.0) g/dl Hct 37.5 (37.0-47.0) % MCV 89.3 (80.0-98.0) fL MCH 30.2 (27.0-33.0) pg MCHC 33.9 (31.0-35.0) g/dl RDW 14.0 (11.0-16.0) % Plt Count 103 L (160-400) X10*3/uL MPV 10.0 (9.4-12.3) fL Immature Gran % (Auto) 0.5 H (0.0-0.4) % Neut % (Auto) 75.0 H (45-73) % Lymph % (Auto) 11.0 L (20-40) % [place] % (Auto) 13.0 H (2-11) % Eos % (Auto) 0.2 (0-4) % Baso % (Auto) 0.3 (0-2) % Lymph # (Auto) 1.3 (1.2-4.9) X10*3/uL [place] # (Auto) 1.5 H (0.1-1.2) X10*3/uL Eos # (Auto) 0.0 (0.0-0.4) X10*3/uL Baso # (Auto) 0.0 (0.0-0.2) X10*3/uL Abs Immat Gran (auto) 0.06 H (0.00-0.03) X10*3/uL Absolute Neuts (auto) 8.6 H (2.0-8.3) x10*3/uL Absolute Nucleated RBC 0.000 (0.0-0.012) X10*3/uL Nucleated RBC % (auto) 0.0 (0.0-0.2) /100WBC Sodium 137 (135-145) mmol/L Potassium 4.0 (3.3-5.1) mmol/L Chloride 107 (96-108) mmol/L Carbon Dioxide 22 (22-29) mmol/L Anion Gap 12 (12-20) BUN 9 (9-16) mg/dL Creatinine 0.63 (0.5-1.4) mg/dL Estim Creat Clear Calc 124.7 Estimated GFR > 60 Random Glucose 104 (60-115) mg/dL Lactic Acid 1.4 (0.5-2.0) mmol/L Calcium 9.4 (8.4-10.2) mg/dL Total Bilirubin 1.5 H (0.0-1.0) mg/dL AST 18 (5-31) U/L ALT 12 (0-31) U/L Alkaline Phosphatase 68 (39-117) U/L Total Protein 6.7 (6.5-8.0) g/dL Albumin 3.6 (3.5-5.0) g/dL Beta HCG, Quant < 2 mIU/mL Urine Color Yellow Urine Appearance Turbid Urine pH >= 9.0 (5.0-9.0) Ur Specific [place] 1.015 (1.005-1.025) Urine Protein 30 (1+) H (Neg-Trace) mg/dL Urine Glucose (UA) Negative (Negative) mg/dL Urine Ketones 15 (Negative) mg/dL Urine Blood Small (1+) H (Negative) Urine Nitrite Negative (Negative) Ur Leukocyte Esterase Moderate (2+) H (Negative) Urine RBC 3-5 H (0-2) /HPF Urine WBC 6-10 (0-5) /HPF Ur Squamous Epith Cells 11-20 (0-2) /HPF Other Crystals Present Urine Bacteria 4+ (None Seen) Hyaline Casts 3-5 (0-2) /LPF Discharge Plan Discharge Clinical Impression: Hematuria, Cyst of right ovary Patient Disposition: Home, Self-Care Instructions: Ovarian Cyst (ED), Hematuria (ED) Additional Instructions: There were no acute findings on the CT scan, you are passing blood in your urine given you just had lithotripsy. You were also found to have a small ovarian cyst on the right. All of your labs were normal today, your urine is not infected. 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 Prescriptions: No Action valacyclovir [Valtrex] 500 mg Tablet 500 mg PO BID diphenhydramine HCl [Banophen] 25 mg Tablet 25 mg PO TID PRN (Reason: Allergic Reaction) docusate sodium 100 mg Capsule 100 mg PO BID doxazosin 2 mg Tablet 2 mg PO DAILY lisinopril 10 mg Tablet 10 mg PO BEDTIME Qty: 30 0RF Protocol: Hold for SBP< HOLD for SBP < : 90 loratadine 10 mg Tablet 10 mg PO DAILY Qty: 30 0RF cyclobenzaprine 5 mg Tablet 5 mg PO TID PRN (Reason: Back Pain) Qty: 45 0RF fluticasone propionate 113 mcg/actuation aero powdr breath act w/sensor 1 inh inhalation BID Qty: 1 0RF Interventions: ED Discharge Assessment Last Done: 02/19/24 03:03 Discharge Date/Time: 02/19/24 03:07 Print Language: Libyan
[2024-02-18 14:11] LABS: Basophils Percent Auto 0.3 % (0-2); Eosinophils Percent Auto 0.2 % (0-4); Hematocrit 37.5 % (37.0-47.0); Hemoglobin 12.7 g/dl (12.0-16.0); Imm Gran Abs Auto 0.06 X10*3/uL (0.00-0.03); Imm Gran Pct Auto 0.5 % (0.0-0.4); Lymphocytes Absolute Auto 1.3 X10*3/uL (1.2-4.9); MANUAL DIFF FLAG NO; Mean Corpuscular HGB Conc 33.9 g/dl (31.0-35.0); Mean Corpuscular Hemoglobin 30.2 pg (27.0-33.0); Mean Corpuscular Volume 89.3 fL (80.0-98.0); Monocytes Absolute Auto 1.5 X10*3/uL (0.1-1.2); Neutrophils Absolute Auto 8.6 x10*3/uL (2.0-8.3); Platelet Count 103 X10*3/uL (160-400); White Blood Count 11.5 X10*3/uL (4.8-10.8)
[2024-02-18 14:35] LABS: Alanine Aminotransferase 12 U/L (0-31); Albumin Level 3.6 g/dL (3.5-5.0); Alkaline Phosphatase 68 U/L (39-117); Anion Gap 12 (12-20); Aspartate Amino Transferase 18 U/L (5-31); Bilirubin Total 1.5 mg/dL (0.0-1.0); Blood Urea Nitrogen 9 mg/dL (9-16); Calcium 9.4 mg/dL (8.4-10.2); Carbon Dioxide 22 mmol/L (22-29); Chloride 107 mmol/L (96-108); Creatinine Clr Calc Pharmacy 124.7; Estimated Glomerular Filt Rate > 60; Glucose Random 104 mg/dL (60-115); Sodium 137 mmol/L (135-145); Total Protein 6.7 g/dL (6.5-8.0)
[2024-02-18 14:42] LABS: HCG Quantitative < 2 mIU/mL
[2024-02-18 19:51] VITALS: BP 106/58; PULSE 93; RESP 18; TEMP 37.4; O2SAT 95
--- NOTE | 2024-02-18 19:59 | PC.NURSE ---
Patient is alert and oriented x3, c/o of achy, sharp pain in RLQ with nausea since this morning. VSS obtained and noted oral temp 99.3, ED provider notified. Urine specimen collected via clean catch and sent to lab for processing. Patient ambulates independently with a steady gait. Patiet oriented to ED room, call miller in reach.
[2024-02-18 20:27] LABS: Appearance Urine Turbid; Color Urine Yellow; Glucose Urine UA Negative (Negative); Leukocyte Esterase Urine Moderate (2+) (Negative); Nitrite Urine Negative (Negative); PH >= 9.0 (5.0-9.0); Specific Gravity - Urine 1.015 (1.005-1.025); UMIC TRIGGER UACC YES; Urine Blood Small (1+) (Negative); Urine Ketones 15 mg/dL (Negative); Urine Protein 30 (1+) mg/dL (Neg-Trace)
[2024-02-18 20:41] LABS: Bacteria Urine 4+ (None Seen); Other Crystals Urine Present; UACC Culture Trigger YES
[2024-02-18 20:47] LABS: Lactic Acid 1.4 mmol/L (0.5-2.0)
[2024-02-18] MEDS: 0.9 % Sodium Chloride 1,000 ML 999 ML IV (21:20)
[2024-02-18] MEDS: Ketorolac Tromethamine 15 MG/ML VIAL IVPUSH (21:21)
[2024-02-18] MEDS: ondansetron HCL 4 MG/2 ML VIAL IVPUSH (21:21)
--- NOTE | 2024-02-18 21:26 | PC.NURSE ---
22 G IV line established in L hand, patient medicated per JUN. Patient requested and given tuna fish sandwich, cheese stick, pudding, and paolo magdaleno. Tolerated well. Patient currently resting in a stretcher bed, call bed in reach, plan of care ongoing.
[2024-02-18 23:52] VITALS: BP 113/64; PULSE 62; RESP 14; TEMP 36.8; O2SAT 98
[2024-02-19 03:03] VITALS: BP 119/68; PULSE 68; RESP 16; TEMP 37.1; O2SAT 98
== END 2024-02-19 03:07 | disposition home or self-care (01) ==
PROVIDERS: Physician Assistant; Physician Assistant Medical; Emergency Provider Emergency Medicine
DX: R31.9 Hematuria, unspecified (principal); N83.201 Unspecified ovarian cyst, right side; R10.31 Right lower quadrant pain; I10 Essential (primary) hypertension; F25.9 Schizoaffective disorder, unspecified; G40.909 Epilepsy, unspecified, not intractable, without status epilepticus; Z79.899 Other long term (current) drug therapy
CPT/HCPCS: 36415; 74176; 76830; 76856; 80053; 81001; 83605; 84702; 85025; 87040; 87086; 96361; 96374; 96375; 99284; 99285; J1885; J2405